=== PATIENT | male | born 1965 | race Two or more races ===

== ENCOUNTER 2024-04-05 23:07 | Emergency (ER) | payer MEDICAID, SELFPAY ==
[2024-04-05 23:15] VITALS: BP 164/116; PULSE 95; RESP 18; TEMP 36.8; O2SAT 96
--- NOTE | 2024-04-05 23:24 | EDNOTE_ITS ---
ED Medical Clearance RME/HPI General Chief complaint: Medical Clearance Stated complaint: HIGHBLOOD PRESSURE Time Seen by Provider: 04/05/24 23:16 Arrival date/time: 04/05/24 23:07 59M with history of HTN (lisinopril; last dose 5 hours ago) presents to ED with PD for detention clearance. Patient was arrested for outstanding warrants and has no complaints. Patient was turned away from detention due to BP in 160s. Limitations: no limitations Related Information Home Medications ?Medication ?Instructions ?Recorded ?Confirmed No Known Home Medications 04/06/2304/15 Allergies Allergy/AdvReac Type Severity Reaction Status Date / Time No Known Allergies Allergy Verified 07/14/23 16:14 Review of Systems Review of Systems Systems Reviewed: All systems reviewed, normal except as documented Constitutional Constitutional: Reports system reviewed and no additional complaints, except as documented, Denies fever(s) and Denies headache(s) ENT Ears, Nose, Mouth, and Throat: Denies disequilibrium and Denies headache(s) Cardiovascular Cardiovascular: Reports system reviewed and no additional complaints, except as documented, Denies chest pain and Denies dyspnea Respiratory Respiratory: Reports system reviewed and no additional complaints, except as documented, Denies cough and Denies dyspnea Gastrointestinal Gastrointestinal: Reports system reviewed and no additional complaints, except as documented, Denies abdominal pain, Denies nausea and Denies vomiting Neurologic Neurologic: Reports system reviewed and no additional complaints, except as documented, Denies confusion, Denies disequilibrium and Denies headache(s) Psychiatric Psychiatric: Denies confusion Past Medical History Past Medical History NEUROLOGIC: Negative Neurological Disorders or Seizures CARDIAC: Positive Cardiac Disorders and Hypertension; Negative Congestive Heart Failure RESPIRATORY: Negative Chronic Obstructive Pulmonary Disease (COPD) or Asthma GASTROINTESTINAL: Negative Gastrointestinal Disorders GENITOURINARY: Positive Genitourinary Disorders and Benign Prostatic Hyperplasia; Negative Renal Disease REPRODUCTIVE: Negative Fibroids MUSCULOSKELETAL: Negative Musculoskeletal Disorders ENDOCRINE: Negative Endocrine Disorders, Diabetes Mellitus Type 1 or Diabetes Mellitus Type 2 HEMATOLOGIC: Negative Blood Disorders or Sickle Cell Disease OTHER HISTORY: Negative Blood Transfusions, Blood Transfusion Reaction, Anesthesia Reactions, Organ Transplant, Chemotherapy, Radiation Therapy, Hyperbaric Therapy or Cancer Surgical History SURGICAL: Negative Joint Replacement or Organ Transplant Social History SMOKING STATUS: Never smoker ED Exam General Limitations: Present no limitations General appearance: Present alert and in no apparent distress Head Head exam: Present atraumatic Eye Eye exam: Present normal appearance, PERRL and EOMI ENT ENT exam: Present normal exam, normal oropharynx and mucous membranes moist Neck Neck exam: Present normal inspection, full ROM and trachea midline Chest Chest inspection: Present normal inspection and symmetric chest wall rise Respiratory Respiratory exam: Present normal lung sounds bilaterally Cardiovascular Cardiovascular exam: Present regular rate, normal rhythm and normal heart sounds Abdominal Exam Abdominal exam: Present soft and normal bowel sounds Extremities Exam Extremities exam: Present normal inspection and full ROM Back Exam Back exam: Present normal inspection and full ROM Neurological Exam Neurological exam: Present alert, oriented X3 and CN II-XII intact Psychiatric Psychiatric exam: Present normal affect and normal mood Skin Skin exam: Present warm, dry, intact and normal color Course Quality Measures none Orders Category Date Time Status hydrALAZINE HCL [Apresoline] Med 04/05/24 23:16 Discontinued 25 mg PO X1 ONE Vital Signs Vital signs: Vital Signs Temperature 98.2 F 04/05/24 23:15 Pulse Rate 95 04/05/24 23:15 Respiratory Rate 18 04/05/24 23:15 Blood Pressure 164/116 H 04/05/24 23:15 Pulse Oximetry (%) 96 04/05/24 23:15 Oxygen Delivery Method Room Air 04/05/24 23:15 O2 at 96% no RA and WNLs Medical Clearance MDM Narrative MDM Narrative:: 59M with history of HTN (lisinopril; last dose 5 hours ago) presents to ED with PD for detention clearance. Patient was arrested for outstanding warrants and has no complaints. Patient was turned away from detention due to BP in 160s. Physical exam reveals normal pupil response and EOM. RRR. Patient is afebrile, calm, and alert. Meds given. Patient data External records reviewed:: [facility] previous records Clinical information provided by:: patient Social determinants that could affect healthcare access:: none Patient has the following chronic illnesses:: HTN How is presenting disease/condition affected by chronic disease/condition?: exacerbated by Evaluation data The following diagnostics were reviewed and interpreted by me:: other (specify) (none) Lab and/or radiology exams considered but not ordered:: not ordered Interpretation Summary: n/a Medications / Prescriptions Medications or Prescriptions considered but not ordered:: ordered Medication administrations:: Medication Administration History Discontinued Medications Hydralazine HCl (Hydralazine Hcl 25 Mg Tablet) 25 mg PO X1 ONE Stop: 04/05/24 23:17 above Consultations Consultation(s) initiated? (list below): No Diagnosis Medical Clearance Differential Diagnosis: other (HTN, ACS, medical clearance ) Most likely diagnosis given after review of the tests above:: HTN and medical clearance Admission Indicated Admission indicated?: not indicated Admission Request Was there a request for admission?: No Disposition Plan Disposition Plan: Discharge Discharge Attestation Discharge Attestation: The patient and all family members were given an opportunity to ask questions and understood the discharge instructions. Discharge instructions specifically effects, indications for sooner follow up or return to the emergency department, and the expected course of current diagnosis. Patient condition: Stable Discharge Plan Plan Patient Disposition: HOME (Self Care) Disposition Comment: Stable Prescriptions/Referrals Prescriptions/Med Rec: No Action No Known Home Medications Problem List Clinical Impression: Hypertension, Medical clearance for incarceration Patient/Caregiver Discharge Instructions Print Language: Hungarian Stand Alone Forms: Patient Portal Info Letter WALLACE/JENNIFER Supervising Physician VINNY Supervising Physician: Dr. Sr
[2024-04-05 23:27] VITALS: BP 164/116; PULSE 95
[2024-04-05] MEDS: hydrALAZINE HCL 25 MG TABLET PO (23:27)
== END 2024-04-05 23:53 | disposition home or self-care (01) ==
LOC: SERX 23:38
PROVIDERS: Emergency Provider Emergency Medicine; PCP Family Medicine
DX: Z02.89 Encounter for other administrative examinations (principal); I10 Essential (primary) hypertension
CPT/HCPCS: 99282; A9270

== ENCOUNTER 2024-06-02 03:27 | Emergency (ER) | payer MEDICAID, SELFPAY ==
[2024-06-02 03:28] VITALS: BMI 28.5
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
[2024-06-02 04:09] VITALS: BP 177/102; PULSE 90; RESP 17; TEMP 36.6; O2SAT 97
[2024-06-02] MEDS: IBUPROFEN TAB 400 MG TABLET 800 MG PO (04:11)
--- NOTE | 2024-06-02 04:32 | PC.NURSE ---
PATIENT REFUSED CRUTCHES. PATIENT STATED DON'T EVEN BOTHER, I'M NOT GOING TO USE THEM. PATIENT WAS ASKED TO WAIT FOR THIS NURSE TO INFORM DR. MOORE OF REFUSAL OF CRUTCHES NURSE HAD ALREADY GIVEN PATIENT HIS DISCHARGE INSTRUCTION. UPON RETURN TO THE [facility] INFORMED THIS NURSE THAT PATIENT LEFT IMMEDIATELY AFTER BEING PROVIDED DISCHARGE PAPERWORK. DR. MOORE AWARE OF REFUSAL OF CRUTCHES.
== END 2024-06-02 04:35 | disposition home or self-care (01) ==
LOC: SERX 04:44
PROVIDERS: Emergency Provider Emergency Medicine; PCP Family Medicine
DX: S80.11XA Contusion of right lower leg, initial encounter (principal); V18.0XXA Pedal cycle driver injured in noncollision transport accident in nontraffic accident, initial encounter; Y93.55 Activity, bike riding; I10 Essential (primary) hypertension
CPT/HCPCS: 73552; 73590; 99283; A9270

== ENCOUNTER 2024-09-02 14:54 | Emergency (ER) | payer MEDICAID, SELFPAY ==
[2024-09-02] VITALS (8 sets, daily range): BP systolic 166–199; BP diastolic 99–116; PULSE 65–106; RESP 20; TEMP 36.6; O2SAT 97–99; BMI 24.4
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
--- NOTE | 2024-09-02 15:22 | EKG_ITS ---
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
[2024-09-02] MEDS: hydrALAZINE INJ 20 MG/ML VIAL 5 MG IVP ×2 (16:33→17:12)
[2024-09-02 16:43] LABS: Basophils # (Auto) 0.0 Thou/mm3 (0.0-0.2); Basophils % (Auto) 1 % (0-2.5); Eosinophils # (Auto) 0.1 Thou/mm3 (0.0-0.5); Eosinophils % (Auto) 1 % (0-10); Hematocrit 40.6 % (41.0-53.0); Hemoglobin 13.9 g/dL (13.5-16.0); Immature Granulocytes Auto 0.02 Thou/mm3 (0.00-0.00); Lymphocytes # (Auto) 0.9 Thou/mm3 (1.0-4.8); Lymphocytes % (Auto) 14 % (10-50); Mean Corpuscular HGB Conc 34.2 g/dl (31.0-37.0); Mean Corpuscular Hemoglobin 28.9 pg (25.0-35.0); Mean Corpuscular Volume 84 fL (80-100); Monocytes # (Auto) 0.4 Thou/mm3 (0.0-0.8); Monocytes % (Auto) 7 % (0-12); Neutrophils # (Auto) 5.0 Thou/mm3 (1.8-7.7); Neutrophils % (Auto) 77 % (37-80); Nucleated Red Blood Cell # 0.00 Thou/mm3 (0.00-0.00); Nucleated Red Blood Cell % 0 /100 WBC (0); Platelet Count 250 Thou/mm3 (140-440); RDW Standard Deviation 38.5 fL (35.1-43.9); Red Blood Count 4.81 Miln/mm3 (4.50-5.90); White Blood Count 6.5 Thou/mm3 (3.8-10.6)
[2024-09-02 16:57] LABS: Alanine Aminotransferase 12 U/L (10-49); Albumin, Serum 4.3 gm/dL (3.4-4.8); Albumin/Globulin Ratio 1.7 (1.2-2.2); Alkaline Phosphatase 102 U/L (46-116); Anion Gap 9 (7-16); Aspartate Amino Transferase 19 U/L (0-34); BUN/Creatinine Ratio 8 Ratio (12-20); Bilirubin,Total 0.6 mg/dL (0.3-1.2); Blood Urea Nitrogen 11 mg/dL (9-23); Calcium 9.3 mg/dL (8.3-10.6); Calcium (Corrected) 9.3 mg/dL (8.5-10.1); Carbon Dioxide 31.4 mMol/L (20.0-31.0); Chloride 102 mMol/L (98-107); Creatinine (Component) 1.3 mg/dL (0.6-1.3); Estimated Creatinine Clearance 66.3 mL/min (>60); Globulin 2.6 gm/dL (2.3-3.5); Glucose 109 mg/dL (74-106); Osmolality,Calculated 283 (275-295); Potassium 3.3 mMol/L (3.4-5.1); Sodium 142 mMol/L (136-145); Total Protein 6.9 gm/dL (5.7-8.2); eGFR > 60 See Note
== END 2024-09-02 17:26 ==
PROVIDERS: Emergency Provider Family Medicine
DX: Z02.89 Encounter for other administrative examinations (principal); I10 Essential (primary) hypertension
CPT/HCPCS: 36415; 80053; 85025; 93005; 96374; 96376; 99283; J0360; A9270

== ENCOUNTER 2025-01-31 20:41 | Emergency (ER) | payer MEDICAID, SELFPAY ==
[2025-01-31 20:42] VITALS: BMI 27.1
[2025-01-31 21:07] VITALS: BP 178/97; PULSE 96; RESP 18; TEMP 36.9; O2SAT 96
--- NOTE | 2025-01-31 21:19 | PD.EDWOUND ---
ED Wound/Laceration-RME/HPI General Chief Complaint: Wound/Laceration Stated Complaint: LEFT FOURTH TOE LACERATION Time Seen by Provider: 01/31/25 21:10 Arrival date/time: 01/31/25 20:41 59-year-old male patient with past medical history of hypertension, came in for evaluation regarding foot laceration. Incident happened last night, patient accidentally dropped a knife to the left foot between the fourth and the fifth 2, dorsal aspect, resulting into 1 cm laceration, patient continued to have oozing blood. Patient went to work and this afternoon noticed that there is still a lot to bleeding. Denies any dizziness denies any other complaints no medication was taken prior to ER visit. Tetanus vaccination is unknown. Related Data Previous Rx's ?Medication ?Instructions ?Recorded lisinopril 10 1 tab PO QDAY hypertension #14 tabs 09/02/24 mg-hydrochlorothiazide 12.5 mg tablet cephalexin 500 mg capsule 500 mg PO TID 7 days #21 caps 01/31/25 ibuprofen 800 mg tablet 800 mg PO Q8H PRN pain #30 tabs 01/31/25 Allergies Allergy/AdvReac Type Severity Reaction Status Date / Time No Known Allergies Allergy Verified 01/31/25 20:42 Review of Systems Review of Systems Narrative Review of Systems: Review of system reviewed and within normal limits except mentioned in HPI ED Exam Narrative Physical exam: VITAL SIGNS: Reviewed. GENERAL APPEARANCE: Alert and interactive, follows commands, no acute distress, HEAD AND FACE: Non-traumatic. ENT: PERRL, pink conjunctivitis, eyelid no trauma, Mucous membrane moist. NECK: Supple, nontender, no nuchal rigidity. CHEST: No tenderness, no crepitus, no paradoxical movement, no retractions. LUNGS: Clear, well ventilated, symmetric, no rales, no wheezing, no ronchi, no stridor, good breath sounds bilaterally. HEART: Regular rate, regular rhythm, no murmur, no gallops. ABDOMEN: Soft, positive bowel sounds, nondistended, no guarding, nontender, no rebound, no masses, RECTAL: Deferred. GENITAL: Deferred. NEUROLOGICAL: Gross motor function intact sensory function intact, Appropriate for age. MUSCULOSKELETAL: low back nontender, full range of motion. EXTREMITIES:+ 1 cm laceration foot dorsal aspect at the base of the toes between 4th and 5th, with active bleeding, nontender, full range of motion. SKIN: Color pink, dry, no rash, no abrasions, no contusions. LYMPHATICS: Deferred. Course Quality Measures none Orders Category Date Time Status Ibuprofen Tab [Motrin Tab] Med 01/31/25 21:17 Discontinued 800 mg PO X1 ONE Lidocaine 1% Vial 20 ml [Xylocaine 1% 20 ML] Med 01/31/25 21:18 Discontinued 10 ml INFL X1 ONE TET,DIP/PERT AC (Adult)-Tdap [Boostrix Adult (Tdap) Med 01/31/25 21:17 Discontinued Vacc] 0.5 ml IMI .ONCE ONE cephALEXin [Keflex] Med 01/31/25 21:17 Discontinued 500 mg PO X1 ONE Vital Signs Vital signs: Vital Signs Temperature 98.5 F 01/31/25 21:07 Pulse Rate 96 01/31/25 21:07 Respiratory Rate 18 01/31/25 21:07 Blood Pressure 178/97 H 01/31/25 21:07 Pulse Oximetry (%) 96 01/31/25 21:07 Oxygen Delivery Method Room Air 01/31/25 21:07 PROCEDURES: Laceration Laceration 1: Site: other (Left foot dorsal aspect) Size (cm): 1 Description: linear Depth: simple, single layer Local Anesthetic: lidocaine 1% Amount of anesthesia used (mL): 3 Pre-repair: wound explored and irrigated extensively Skin layer closed with: nylon Suture size (cm): 4-0 Number of sutures: 2 Technique: simple, interrupted Wound / Laceration MDM Narrative MDM Narrative:: 59-year-old male patient with past medical history of hypertension, came in for evaluation regarding foot laceration. Incident happened last night, patient accidentally dropped a knife to the left foot between the fourth and the fifth 2, dorsal aspect, resulting into 1 cm laceration, patient continued to have oozing blood. Patient went to work and this afternoon noticed that there is still a lot to bleeding. Denies any dizziness denies any other complaints no medication was taken prior to ER visit. Tetanus vaccination is unknown. Repair and suturing was done by me see procedure notes patient was also given Keflex, Motrin, and Boostrix. Patient stable for discharge home Patient data External records reviewed:: None Clinical information provided by:: patient Social determinants that could affect healthcare access:: none Patient has the following chronic illnesses:: Hypertension How is presenting disease/condition affected by chronic disease/condition?: uneffected by Evaluation data The following diagnostics were reviewed and interpreted by me:: other (specify) (None) Lab and/or radiology exams considered but not ordered:: None Interpretation Summary: None Medications / Prescriptions Medications or Prescriptions considered but not ordered:: None Medication administrations:: Medication Administration History Discontinued Medications Cephalexin HCl (Cephalexin 250 Mg Capsule) 500 mg PO X1 ONE Stop: 01/31/25 21:18 Last Admin: 01/31/25 22:00 Dose: 500 mg Documented By: KWAKU Diphtheria/Tetanus/Acell Pertussis (Diphth,Pertuss(Acell),Tet Vac 0.5 Ml Syr- Adult) 0.5 ml IMi .ONCE ONE Stop: 01/31/25 21:18 Last Admin: 01/31/25 22:00 Dose: 0.5 ml Documented By: KWAKU Ibuprofen (Ibuprofen Tab 400 Mg Tablet) 800 mg PO X1 ONE Stop: 01/31/25 21:18 Last Admin: 01/31/25 21:59 Dose: 800 mg Documented By: KWAKU Lidocaine HCl (Lidocaine Hcl 1% 20 Ml Vial) 10 ml INFL X1 ONE Stop: 01/31/25 21:19 Last Admin: 01/31/25 22:02 Dose: 10 ml Documented By: KWAKU Comments: ADMINISERED BY PROVIDER Jackie Esteban Motrin Consultations Consultation(s) initiated? (list below): No Diagnosis Wound Differential Diagnosis: laceration, abrasion and avulsion of skin Most likely diagnosis given after review of the tests above:: Foot laceration Admission Indicated Admission indicated?: not indicated Admission Request Was there a request for admission?: No Disposition Plan Disposition Plan: Discharge Discharge Attestation Discharge Attestation: The patient was given an opportunity to ask questions and understood the discharge instructions. Discharge instructions specifically effects, indications for sooner follow up or return to the emergency department, and the expected course of current diagnosis. Patient condition: Stable Discharge Plan Plan Patient Disposition: HOME (Self Care) Discharge Disposition comment: Stable Prescriptions/Referrals Prescriptions/Med Rec: New cephalexin 500 mg capsule 500 mg PO TID 7 Days Qty: 21 0RF ibuprofen 800 mg tablet 800 mg PO Q8H PRN (Reason: pain) Qty: 30 0RF No Action lisinopril-hydrochlorothiazide 10-12.5 mg tablet 1 tab PO QDAY MDD 1 Qty: 14 0RF Problem List Clinical Impression: Foot laceration Patient/Caregiver Discharge Instructions Discharge Activity: activity as tolerated Education Materials: ED Laceration: All Closures Additional Instructions: Thank you for the opportunity for serving you today. You are stable for discharged . You are advised to: Follow-up with your PCP in 1 to 2 days Return to ED for worsening of symptoms Increase oral fluids Take medication as prescribed For removal of sutures in 7 days Print Language: Indian Stand Alone Forms: Mona Award Info., Patient Portal Info Letter PA/NEUROSCIENCE DIRECTOR NA Supervising Physician PA/NEUROSCIENCE DIRECTOR NA Supervising Physician: MD Heide
[2025-01-31] MEDS: IBUPROFEN TAB 400 MG TABLET 800 MG PO (21:59)
[2025-01-31] MEDS: DIPHTH,PERTUSS(ACELL),TET VAC 0.5 ML SYR- ADULT IMi (22:00)
[2025-01-31] MEDS: LIDOCAINE HCL 1% 20 ML VIAL 10 ML INFL (22:02)
[2025-01-31 22:30] VITALS: BP 155/89; PULSE 88; RESP 18; TEMP 36.6; O2SAT 98
== END 2025-01-31 22:31 | disposition home or self-care (01) ==
LOC: SERX 22:12
PROVIDERS: Emergency Provider Emergency Medicine
DX: S91.312A Laceration without foreign body, left foot, initial encounter (principal); W26.0XXA Contact with knife, initial encounter; Z23 Encounter for immunization
CPT/HCPCS: 12002; 90471; 90715; 99281; J3490; A9270